=== PATIENT | male | born 1950 | race Hispanic/Latino ===

== ENCOUNTER 2020-06-03 14:23 | Outpatient (CLI) | payer MEDICARE ==
--- NOTE | 2020-06-03 16:02 | XRay Report ---
ABDOMEN 1 VIEW(S) INDICATION / CLINICAL INFORMATION: Renal calculus.. COMPARISON: None available. FINDINGS: TUBES / LINES: None. BOWEL GAS PATTERN: No significant abnormality. FREE AIR / EXTRALUMINAL GAS: None seen. ADDITIONAL FINDINGS: There is a 6 mm calcific density overlying the expected location of the inferior pole the left kidney. IMPRESSION: There is a 6 mm calcific density which overlies the inferior pole of the left kidney, possibly renal calculus. If indicated, a renal ultrasound may be considered for further evaluation. Signer Name: Jamey Willis MD Signed: 06/03/2020 3:58 PM Workstation Name: [id number]
== END 2020-06-03 14:24 | disposition home or self-care (01) ==
LOC: SPVIMAG 14:23
PROVIDERS: ATTEND Urology
DX: N20.0 Calculus of kidney (principal)
CPT/HCPCS: 74018